=== PATIENT | male | born 1995 | race Caucasian/White ===

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

== ENCOUNTER 2018-04-26 12:49 | Emergency (ER) | payer MEDICAID, OTHER ==
--- NOTE | 2018-04-26 13:16 | ED PDOC ---
Arrival/HPI - General Historian: Patient - History of Present Illness Narrative History of Present Illness (Text): 04/26/18 13:07 22 y/o male, no significant pmh, nkda, c/o dysuria x 3 days. Pt. stated that he had unprotected sex earlier this month and last month, started to have burning urinary sensation 3 days ago, no discharge, no testicular pain or swelling, no fever or chills, no night sweat, no rash, no numbness or tingling, no eye complaints, no other medical or psychological complaints. Past Medical History - Provider Review Nursing Documentation Reviewed: Yes - Infectious Disease Hx of Infectious Diseases: None - Tetanus Immunization Tetanus Immunization: Unknown - Cardiac Hx Cardiac Disorders: No - Pulmonary Hx Respiratory Disorders: No - Neurological Hx Neurological Disorder: No - HEENT Hx HEENT Disorder: No - Renal Hx Renal Disorder: No - Endocrine/Metabolic Hx Endocrine Disorders: No - Hematological/Oncological Hx Blood Disorders: No - Integumentary Hx Dermatological Disorder: No - Musculoskeletal/Rheumatological Hx Musculoskeletal Disorders: No Hx Falls: No - Gastrointestinal Hx Gastrointestinal Disorders: No - Genitourinary/Gynecological Hx Genitourinary Disorders: No - Psychiatric Hx Psychophysiologic Disorder: No Hx Substance Use: No - Anesthesia Hx Anesthesia: No Family/Social History - Physician Review Nursing Documentation Reviewed: Yes Family/Social History: Unknown Family HX Smoking Status: Never Smoked Hx Alcohol Use: No Hx Substance Use: No Allergies/Home Meds Allergies/Adverse Reactions: Allergies No Known Allergies Allergy (Verified 12/05/15 18:12) Review of Systems - Review of Systems Constitutional: absent: Fatigue, Fevers Eyes: absent: Vision Changes ENT: absent: Hearing Changes Respiratory: absent: SOB, Cough Cardiovascular: absent: Chest Pain Gastrointestinal: absent: Abdominal Pain, Diarrhea, Nausea, Vomiting Genitourinary Male: Dysuria. absent: Frequency, Hematuria, Urinary Output Changes Musculoskeletal: absent: Arthralgias, Back Pain Skin: absent: Rash, Pruritis Psychiatric: absent: Anxiety, Depression, Suicidal Ideation Physical Exam Vital Signs Reviewed: Yes Temperature: Afebrile Blood Pressure: Normal Pulse: Regular Respiratory Rate: Normal Appearance: Positive for: Well-Appearing, Non-Toxic, Comfortable Pain Distress: Mild Mental Status: Positive for: Alert and Oriented X 3 - Systems Exam Head: Present: Atraumatic, Normocephalic Pupils: Present: PERRL Extroacular Muscles: Present: EOMI Conjunctiva: Present: Normal Mouth: Present: Moist Mucous Membranes Neck: Present: Normal Range of Motion Respiratory/Chest: Present: Clear to Auscultation, Good Air Exchange. No: Respiratory Distress, Accessory Muscle Use Cardiovascular: Present: Regular Rate and Rhythm, Normal S1, S2. No: Murmurs Abdomen: No: Tenderness, Distention, Peritoneal Signs Genitourinary Male: Present: Normal External Genitalia, Circumcised Penis. No: Lesions, Penile Discharge, Testicle Tenderness, Penile Swelling, Masses, Erythema, Hernias, Testicle Swelling, Prostate Tenderness Back: Present: Normal Inspection Upper Extremity: Present: Normal Inspection. No: Cyanosis, Edema Lower Extremity: Present: Normal Inspection. No: Edema Neurological: Present: GCS=15, CN II-XII Intact, Speech Normal Skin: Present: Warm, Dry, Normal Color. No: Rashes Psychiatric: Present: Alert, Oriented x 3, Normal Insight, Normal Concentration Medical Decision Making ED Course and Treatment: 04/26/18 13:17 -UA/gc/chlamydia -Observe and reassess -UA show +UTI -Gonorrhea/chlamydia result pending and won't be resulted today, high risk for gonorrhea/chlamydia, rocephine and azithromycin ordered prophylatically. -Discharge home with macrobid, pyridium, notify all your sexual partners for STD testing and/or prophylatic treatment, follow up with your own pmd within 2 days, return to the ER for any new or worsening signs or symptoms. - PA / SEO SPECIALIST / Resident Statement MD/DO has reviewed & agrees with the documentation as recorded. Disposition/Present on Arrival - Present on Arrival Any Indicators Present on Arrival: No History of DVT/PE: No History of Uncontrolled Diabetes: No Urinary Catheter: No History of Decub. Ulcer: No History Surgical Site Infection Following: None - Disposition Have Diagnosis and Disposition been Completed?: Yes Diagnosis: Dysuria, UTI (urinary tract infection) Disposition: HOME/ ROUTINE Disposition Time: 13:18 Patient Plan: Discharge Patient Problems: Current Active Problems Problem Status Onset Dysuria Acute Condition: GOOD Additional Instructions: -Discharge home with macrobid, pyridium, notify all your sexual partners for STD testing and/or prophylatic treatment, follow up with your own pmd within 2 days, return to the ER for any new or worsening signs or symptoms. Prescriptions: Nitrofurantoin Macrocrystals [Macrobid] 100 mg PO BID #14 cap Phenazopyridine [Pyridium] 200 mg PO TID #6 tab Referrals: [facility] [place] [Outside] - Follow up with primary Forms: WORK NOTE
[2018-04-26 13:24] VITALS: TEMP 98.5; BMI 22.4
[2018-04-26 13:45] LABS: PH,URINE 7.5 (4.7-8.0); URINE BILIRUBIN SMALL (NEGATIVE); URINE BLOOD NEGATIVE (NEGATIVE); URINE GLUCOSE (UA) 250 mg/dL (NEGATIVE); URINE LEUKOCYTE ESTERASE TRACE Leu/uL (NEGATIVE); URINE PROTEIN 30 mg/dL (<30 mg/dL)
[2018-04-26 14:14] LABS: URINE APPEARANCE CLEAR (CLEAR); URINE COLOR LIGHT ORANGE (YELLOW)
[2018-04-26] MEDS ORDERED: cefTRIAXone (Rocephin) 250 mg Inj IM STA (14:16)
[2018-04-26 14:17] LABS: URINE RBC 0 - 2 /hpf (0-2)
[2018-04-26 14:18] LABS: URINE BACTERIA MOD /hpf
[2018-04-26 16:40] VITALS: BP 124/80; PULSE 98; RESP 18; O2SAT 99
== END 2018-04-26 16:40 | disposition home or self-care (01) ==
LOC: ED 12:49
DX: R30.0 Dysuria (principal); N39.0 Urinary tract infection, site not specified
CPT/HCPCS: 81001; 87491; 87591; 96372; 99284; J0696

== ENCOUNTER 2018-05-18 12:52 | Emergency (ER) | payer SELFPAY | END 2018-05-18 18:11 | disposition home or self-care (01) | LOC: ED 12:52 ==